=== PATIENT | female | born 1955 | race Caucasian/White ===

== ENCOUNTER 2023-08-06 13:47 | Inpatient (IN) | payer MEDICARE, OTHER, SELFPAY ==
[2023-08-06] VITALS (12 sets, daily range): BP systolic 116–172; BP diastolic 61–84; BMI 31.3; BMI 31.5
--- NOTE | 2023-08-06 12:08 | EDRN ---
this RN placed a RAC #20 PIV, the pt stated to this RN, 'I really can't look at that, i am such a baby with needles and they freak me out and i truly will pass out, i just can't look at it, it bothers me', the pt was started to hyperventilate, this
RN notified the provider Jesusita SLATER and this RN wrapped an shasha bandage around the PIV site loosly so that the pt will not see the PIV, the pt stated to this RN, 'Oh my goodness thank you so much i really appreciate it, i just can't see it
or i will freak out', will frequently check PIV site
--- NOTE | 2023-08-06 12:13 | EDRN ---
this RN called the kitchen and ordered what the pt requested for lunch, the pt is resting on the side of the stretcher, no c/o chest pain, no c/o SOB, no s/s of distress, the pt denies needing at this time, will continue to monitor the pt closely
[2023-08-06 12:19] LABS: % Basophils 0.6 % (0-2); % Eosinophils 0.3 % (0-6); % Immature Granulocytes 0.2 % (0-0.5); % Lymphocytes 17.3 % (20.5-51.1); % Monocytes 8.8 % (1.7-9.3); % Neutrophils 72.8 % (42.2-75.2); Absolute Lymphocytes 1.1 10^3/uL (1.2-3.4); Absolute Monocytes 0.6 10^3/uL (0.1-0.6); Absolute Neutrophils 4.6 10^3/uL (1.4-6.5); Hematocrit 39.1 % (37.0-47.0); Hemoglobin 13.5 g/dL (12.0-16.0); Mean Corp Hgb Conc. 34.5 g/dL (33.0-37.0); Mean Corpuscular Hgb 33.3 pg (27.0-31.0); Mean Corpuscular Volume 96.5 fL (81.0-99.0); Nucleated Red Blood Cells % 0 %; Platelet Count 298 10^3/uL (130-400); Red Blood Cell Count 4.05 10^6/uL (4.20-5.40); White Blood Cell Count 6.3 10^3/uL (4.8-10.8)
[2023-08-06 12:28] LABS: ALT (SGPT) 21 U/L (0-35); AST (SGOT) 25 U/L (14-36); Alkaline Phosphatase 81 U/L (38-126); Blood Urea Nitrogen 20 mg/dl (7-17); Carbon Dioxide 29 mmol/L (22-30); Chloride 105 mmol/L (98-107); Estimated Creatinine Clearance 78 ml/min; Glucose 106 mg/dl (70-99); Potassium 4.2 mmol/L (3.5-5.1); Sodium 137 mmol/L (135-145); Total Bilirubin 0.3 mg/dl (0.2-1.3); eGFR > 60.00
[2023-08-06 12:39] LABS: D-Dimer 0.42 ug/mlFEU (0.00-0.50)
[2023-08-06 12:41] LABS: NT-proBNP 87.6 pg/ml; Troponin I 0.084 ng/ml
--- NOTE | 2023-08-06 12:42 | ED.GENMED ---
History of Present Illness
<Jesusita Rae PA-C - Last Filed: 08/06/23 18:31>
General
Chief Complaint: Chest Pain
Source: patient
Exam Limitations: none
Time Seen by Provider: 08/06/23 11:40
Nursing documentation reviewed up to this point in time: agreed with
Travel History
Have you had any contact with someone who has COVID-19?: No
Do you have any symptoms of coronavirus? Fever > 100 degrees, chills, cough, shortness of breath, sore throat, loss of taste or smell, muscle aches, or headache?: No
History of Present Illness
History of Present Illness:
68 y/o F with h/o HTN, HLD
sys that she was woken from sleep at 5 am today with onset of sob and some chest pressure
it lasted about 5 min before resolving, was 3/10
she then got up later on after eing able to sleep
she walked downstairs and sat down and aroun d9 am got another wave of pressure, this time in back, chest and left arm
lasted about 5 minutes as well and resovled
was not associated with SOB
no fever, chills, vomiting, ewakness, syncope,
Phy Exam
<Jesusita Rae PA-C - Last Filed: 08/06/23 18:31>
Physical Exam
Physical Exam:
GENERAL: Alert , in no apparent distress
EYE: pupils equal and reactive
NECK: Supple
ENT: o/p clr, mmm.
CARDIAC: Regular rate and rhythm .
LUNGS: Clear breath sounds bilaterally, no acute respiratory distress, no wheezes/rales/rhonchi
ABDOMEN: Soft, without focal tenderness, no r/g, no cvat, normal bowel sounds
NEUROLOGICAL: Alert and oriented, no focal neuro deficits
SKIN: Warm and dry, skin intact.
MUSCULOSKELETAL: No edema, well perfused. neg mack's sign
PSYCH: Normal and appropriate interaction.
Scores
<Jesusita Rae PA-C - Last Filed: 08/06/23 18:31>
Heart Score for Chest Pain Patients
STEMI patient?: No
History: Moderately Suspicious
ECG: Nonspecific Repolarization
Age: >/= 65 years
Risk Factors: >/= 3 Risk Factors or History of CAD
Troponin: >1 - <3 x Normal Limit
Heart Score for Chest Pain Patients: 7
Heart Score Risk: 72.7 % MACE over next 6 weeks
Course
<Jesusita Rae PA-C - Last Filed: 08/06/23 18:31>
Orders/Labs/Results
Orders:
Orders
08/06/23 11:10
ECG [Electrocardiogram (*1)] Urgent
Reason for Study: Chest Pain
EKG- Treatment ONCE
08/06/23 12:00
CXR2 [CR Chest - 2 Views ] Urgent
Comment:
Reason For Exam: shortness of breath
08/06/23 12:02
Complete Blood Count/With Diff Urgent
Comprehensive Metabolic Panel Urgent
NT-proBNP Urgent
Troponin I Urgent
08/06/23 12:19
D-Dimer Urgent
PTT Urgent
Comment: ADD ON
08/06/23 12:49
Aspirin Chewable [Low Strength Aspirin] 324 mg PO NOW STA
08/06/23 12:57
Heparin 4,000 units IV NOW STA
Pharmacy Request to Place See Dose Instructions PO NOW STA
Discontinue all Active Warfarin orders?: Yes
Nursing to Place Non Medication Order As Directed
Physician Order: PTT 6 hours after initial start of Heparin infusion
Above order entered?: Yes
08/06/23 13:00
Add On- LAB Urgent
Tests Added?: ptt
Heparin 27171 Units/250 ml 25,000 units in 250 ml IV PER PROTOCOL
Weight to be used for heparin protocol in kilograms (kg):: 82.554
Protocol:: Cardiac Tx/Acute Coronary
PTT Goal Range to be used:: PTT 73 to 111 seconds
Order type:: Initial
INITIAL Infusion Dose (UNITS/KG/hr) & then follow protocol:: 12 units/kg/hr
Infusion Dose in UNITS/hr & then follow protocol (UNITS/hr):: 1,000
INFUSION RATE in mL/hr & then follow protocol (mL/hr):: 10
PTT less than or equal to 64 seconds:: Increase rate by 200 units/hr (+ 2 mL/hr)
PTT 64.1 to 72.9 seconds:: Increase rate by 100 units/hr (+ 1 mL/hr)
PTT 73 to 111 seconds:: Target Range. No change in rate.
PTT 111.1 to 130.9 seconds:: Decrease rate by 100 units/hr (- 1 mL/hr)
PTT 131 to 199.9 seconds:: HOLD for 1 hr. Then decrease rate by 200 units/hr (- 2 mL/hr)
PTT greater than or equal to 200 seconds:: HOLD for 2 hrs & Notify Provider. Then decrease by 200 units/hr (-
2 mL/hr)
Lab follow-up:: Each change, PTT q6h until 2 consecutive are therapeutic. Then PTT
daily.
Pharmacy Request to Place See Dose Instructions IV DIRECTED
08/06/23 13:28
Admit/Transfer Patient As Directed
Co-Sign Provider:
Level of Care: Inpatient admission
Assign to:: Telemetry
Physician / Group: Hospitalist
Diagnosis: NSTEMI
Reason for Telemetry: Chest Pain syndromes
Date to Stop Telemetry: 08/08/23
Time to Stop Telemetry: 11:00
Reason for Hospitalization: Chest pain, NSTEMI
Expected length of stay greater than two midnights?: Yes
ELOS- Estimated Length of Stay in days: 2
I certify the patient meets the requirements for IP care: Yes
08/06/23 13:30
Code Status As Directed
Resuscitation Status: Full Code
08/06/23 Dinner
Cholesterol Lowering
At Your Request: Full Participation
Cholesterol Lowering: Sodium, 2 Gram
08/06/23 16:20
Electrocardiogram (*1) Q6H
Reason for Study: Chest Pain
Comment: at admission and Q3H for total of 3, to be done with each troponin
Acetaminophen [Tylenol] 650 mg PO Q4HPRN PRN
Mag Hydrox/Al Hydrox/Simeth [Maalox] 30 ml PO Q4HPRN PRN
Nitroglycerin Sublingual [Nitrostat (Sublingual)] 0.4 mg SL [id number] PRN
Ondansetron Injectable [Zofran] 4 mg IV Q6HPRN PRN
08/06/23 16:20
Echo 2D MMode Color/Doppler Routine
Reason for Study: chest pain
CARDIOLOGY CONSULT Routine
Consulting Provider: Johnny Dallas
Was physician already notified: Yes
Reason for consult: NSTEMI
VTE Contraindication Routine
VTE Mechanical Device Contraindication: Medical Contraindication
Pharmocologic Contraindication: Medical Contraindication
Heparin Protocol- PTT Orders As Directed
PTT per Heparin protocol: -Obtain CBC and baseline PTT - if not already collected.
-Obtain PTT 6 hours from start of infusion. Then, every 6 hours until 2 consecutive
PTT's are therapeutic. Then, PTT Daily.
-With each rate change, obtain PTT every 6 hours until 2 consecutive PTT's are
therapeutic. Then, PTT Daily.
Activity As Directed
Activity Level: With Assistance
INT (Intravenous Needle Therapy) As Directed
Comment: maintain peripheral IV access
Intake/ Output As Directed
Frequency: Per unit guidelines
Notify MD As Directed
Notify physician if: PTT is greater than or equal to 200.
Vital Signs As Directed
Frequency: q4h
Weight As Directed
Frequency: Daily
Pulse Ox/spot Check [RESP] Routine
Quantity: 1
Special Instructions: on admission and then every shift if on oxygen
08/06/23 16:58
Troponin I Q3H
Comment: at admit & Q3H for 3 total including ED draws, obtain ECG with each level
08/06/23 18:00
Atorvastatin [Lipitor] 80 mg PO QPM
08/06/23 19:30
PTT Urgent
08/06/23 22:00
estradiol [Yuvafem] 10 mcg VAGINAL MOWEFRSA@2200
08/06/23 22:20
Electrocardiogram (*1) Q6H
Reason for Study: Chest Pain
Comment: at admission and Q3H for total of 3, to be done with each troponin
08/07/23 04:20
Electrocardiogram (*1) Q6H
Reason for Study: Chest Pain
Comment: at admission and Q3H for total of 3, to be done with each troponin
08/07/23 06:00
Basic Metabolic Panel IN AM
Cardiovascular Evaluation IN AM
Complete Blood Count/No Diff IN AM
Glycohemoglobin (HgbA1c) IN AM
08/07/23 08:00
Aspirin Low Dose EC [Aspir Low (Enteric Coated)] 81 mg PO DAILY
Multivitamin [Theragran] 1 tablet PO DAILY
08/08/23 Breakfast
NPO
Allow oral meds: Yes
Allow clear liquids: Sips of Clears
Complete Blood Count/No Diff Q2D
Comment: notify provider: Platelet count < 130,000 or decrease by 50% from baseline
08/08/23 11:00
DC Protocol for Telemetry ONCE
08/10/23 06:00
Complete Blood Count/No Diff Q2D
Comment: notify provider: Platelet count < 130,000 or decrease by 50% from baseline
08/12/23 06:00
Complete Blood Count/No Diff Q2D
Comment: notify provider: Platelet count < 130,000 or decrease by 50% from baseline
08/14/23 06:00
Complete Blood Count/No Diff Q2D
Comment: notify provider: Platelet count < 130,000 or decrease by 50% from baseline
08/16/23 06:00
Complete Blood Count/No Diff Q2D
Comment: notify provider: Platelet count < 130,000 or decrease by 50% from baseline
08/18/23 06:00
Complete Blood Count/No Diff Q2D
Comment: notify provider: Platelet count < 130,000 or decrease by 50% from baseline
08/20/23 06:00
Complete Blood Count/No Diff Q2D
Comment: notify provider: Platelet count < 130,000 or decrease by 50% from baseline
08/22/23 06:00
Complete Blood Count/No Diff Q2D
Comment: notify provider: Platelet count < 130,000 or decrease by 50% from baseline
Abnormal Lab Results
08/06/23
12:02
RBC 4.05 L 10^6/uL
(4.20-5.40)
MCH 33.3 H pg
(27.0-31.0)
Absolute Lymphs (auto) 1.1 L 10^3/uL
(1.2-3.4)
Lymphocytes % 17.3 L %
(20.5-51.1)
BUN 20 H mg/dl
(7-17)
Glucose 106 H mg/dl
(70-99)
Troponin I 0.084 H* ng/ml
08/06/23 12:02
08/06/23 12:02
Vital Signs
Initial and Last Documented VS:
Initial Vital Signs
Temp Pulse Resp BP Pulse Ox
98.1 F 72 16 171/84 98
08/06/23 11:37 08/06/23 11:37 08/06/23 11:37 08/06/23 11:37 08/06/23 11:37
Last Documented Vital Signs
Temp Pulse Resp BP Pulse Ox
98.1 F 65 17 172/73 96
08/06/23 11:37 08/06/23 17:37 08/06/23 16:15 08/06/23 17:37 08/06/23 15:30
<Riaz Richard, DO - Last Filed: 08/06/23 12:54>
Orders/Labs/Results
Orders:
Orders
08/06/23 11:10
ECG [Electrocardiogram (*1)] Urgent
Reason for Study: Chest Pain
EKG- Treatment ONCE
08/06/23 12:00
CXR2 [CR Chest - 2 Views ] Urgent
Comment:
Reason For Exam: shortness of breath
08/06/23 12:02
Complete Blood Count/With Diff Urgent
Comprehensive Metabolic Panel Urgent
NT-proBNP Urgent
Troponin I Urgent
08/06/23 12:19
D-Dimer Urgent
PTT Urgent
Comment: ADD ON
08/06/23 12:49
Aspirin Chewable [Low Strength Aspirin] 324 mg PO NOW STA
08/06/23 12:57
Heparin 4,000 units IV NOW STA
Pharmacy Request to Place See Dose Instructions PO NOW STA
Discontinue all Active Warfarin orders?: Yes
Nursing to Place Non Medication Order As Directed
Physician Order: PTT 6 hours after initial start of Heparin infusion
Above order entered?: Yes
08/06/23 13:00
Add On- LAB Urgent
Tests Added?: ptt
Heparin 78430 Units/250 ml 25,000 units in 250 ml IV PER PROTOCOL
Weight to be used for heparin protocol in kilograms (kg):: 82.554
Protocol:: Cardiac Tx/Acute Coronary
PTT Goal Range to be used:: PTT 73 to 111 seconds
Order type:: Initial
INITIAL Infusion Dose (UNITS/KG/hr) & then follow protocol:: 12 units/kg/hr
Infusion Dose in UNITS/hr & then follow protocol (UNITS/hr):: 1,000
INFUSION RATE in mL/hr & then follow protocol (mL/hr):: 10
PTT less than or equal to 64 seconds:: Increase rate by 200 units/hr (+ 2 mL/hr)
PTT 64.1 to 72.9 seconds:: Increase rate by 100 units/hr (+ 1 mL/hr)
PTT 73 to 111 seconds:: Target Range. No change in rate.
PTT 111.1 to 130.9 seconds:: Decrease rate by 100 units/hr (- 1 mL/hr)
PTT 131 to 199.9 seconds:: HOLD for 1 hr. Then decrease rate by 200 units/hr (- 2 mL/hr)
PTT greater than or equal to 200 seconds:: HOLD for 2 hrs & Notify Provider. Then decrease by 200 units/hr (-
2 mL/hr)
Lab follow-up:: Each change, PTT q6h until 2 consecutive are therapeutic. Then PTT
daily.
Pharmacy Request to Place See Dose Instructions IV DIRECTED
08/06/23 13:28
Admit/Transfer Patient As Directed
Co-Sign Provider:
Level of Care: Inpatient admission
Assign to:: Telemetry
Physician / Group: Hospitalist
Diagnosis: NSTEMI
Reason for Telemetry: Chest Pain syndromes
Date to Stop Telemetry: 08/08/23
Time to Stop Telemetry: 11:00
Reason for Hospitalization: Chest pain, NSTEMI
Expected length of stay greater than two midnights?: Yes
ELOS- Estimated Length of Stay in days: 2
I certify the patient meets the requirements for IP care: Yes
08/06/23 13:30
Code Status As Directed
Resuscitation Status: Full Code
08/06/23 Dinner
Cholesterol Lowering
At Your Request: Full Participation
Cholesterol Lowering: Sodium, 2 Gram
08/06/23 16:20
Electrocardiogram (*1) Q6H
Reason for Study: Chest Pain
Comment: at admission and Q3H for total of 3, to be done with each troponin
Acetaminophen [Tylenol] 650 mg PO Q4HPRN PRN
Mag Hydrox/Al Hydrox/Simeth [Maalox] 30 ml PO Q4HPRN PRN
Nitroglycerin Sublingual [Nitrostat (Sublingual)] 0.4 mg SL [id number] PRN
Ondansetron Injectable [Zofran] 4 mg IV Q6HPRN PRN
08/06/23 16:20
Echo 2D MMode Color/Doppler Routine
Reason for Study: chest pain
CARDIOLOGY CONSULT Routine
Consulting Provider: Johnny Dallas
Was physician already notified: Yes
Reason for consult: NSTEMI
VTE Contraindication Routine
VTE Mechanical Device Contraindication: Medical Contraindication
Pharmocologic Contraindication: Medical Contraindication
Heparin Protocol- PTT Orders As Directed
PTT per Heparin protocol: -Obtain CBC and baseline PTT - if not already collected.
-Obtain PTT 6 hours from start of infusion. Then, every 6 hours until 2 consecutive
PTT's are therapeutic. Then, PTT Daily.
-With each rate change, obtain PTT every 6 hours until 2 consecutive PTT's are
therapeutic. Then, PTT Daily.
Activity As Directed
Activity Level: With Assistance
INT (Intravenous Needle Therapy) As Directed
Comment: maintain peripheral IV access
Intake/ Output As Directed
Frequency: Per unit guidelines
Notify MD As Directed
Notify physician if: PTT is greater than or equal to 200.
Vital Signs As Directed
Frequency: q4h
Weight As Directed
Frequency: Daily
Pulse Ox/spot Check [RESP] Routine
Quantity: 1
Special Instructions: on admission and then every shift if on oxygen
08/06/23 16:58
Troponin I Q3H
Comment: at admit & Q3H for 3 total including ED draws, obtain ECG with each level
08/06/23 18:00
Atorvastatin [Lipitor] 80 mg PO QPM
08/06/23 19:30
PTT Urgent
08/06/23 22:00
estradiol [Yuvafem] 10 mcg VAGINAL MOWEFRSA@2200
08/06/23 22:20
Electrocardiogram (*1) Q6H
Reason for Study: Chest Pain
Comment: at admission and Q3H for total of 3, to be done with each troponin
08/07/23 04:20
Electrocardiogram (*1) Q6H
Reason for Study: Chest Pain
Comment: at admission and Q3H for total of 3, to be done with each troponin
08/07/23 06:00
Basic Metabolic Panel IN AM
Cardiovascular Evaluation IN AM
Complete Blood Count/No Diff IN AM
Glycohemoglobin (HgbA1c) IN AM
08/07/23 08:00
Aspirin Low Dose EC [Aspir Low (Enteric Coated)] 81 mg PO DAILY
Multivitamin [Theragran] 1 tablet PO DAILY
08/08/23 Breakfast
NPO
Allow oral meds: Yes
Allow clear liquids: Sips of Clears
Complete Blood Count/No Diff Q2D
Comment: notify provider: Platelet count < 130,000 or decrease by 50% from baseline
08/08/23 11:00
DC Protocol for Telemetry ONCE
08/10/23 06:00
Complete Blood Count/No Diff Q2D
Comment: notify provider: Platelet count < 130,000 or decrease by 50% from baseline
08/12/23 06:00
Complete Blood Count/No Diff Q2D
Comment: notify provider: Platelet count < 130,000 or decrease by 50% from baseline
08/14/23 06:00
Complete Blood Count/No Diff Q2D
Comment: notify provider: Platelet count < 130,000 or decrease by 50% from baseline
08/16/23 06:00
Complete Blood Count/No Diff Q2D
Comment: notify provider: Platelet count < 130,000 or decrease by 50% from baseline
08/18/23 06:00
Complete Blood Count/No Diff Q2D
Comment: notify provider: Platelet count < 130,000 or decrease by 50% from baseline
08/20/23 06:00
Complete Blood Count/No Diff Q2D
Comment: notify provider: Platelet count < 130,000 or decrease by 50% from baseline
08/22/23 06:00
Complete Blood Count/No Diff Q2D
Comment: notify provider: Platelet count < 130,000 or decrease by 50% from baseline
Abnormal Lab Results
08/06/23
12:02
RBC 4.05 L 10^6/uL
(4.20-5.40)
MCH 33.3 H pg
(27.0-31.0)
Absolute Lymphs (auto) 1.1 L 10^3/uL
(1.2-3.4)
Lymphocytes % 17.3 L %
(20.5-51.1)
BUN 20 H mg/dl
(7-17)
Glucose 106 H mg/dl
(70-99)
Troponin I 0.084 H* ng/ml
08/06/23 12:02
08/06/23 12:02
Vital Signs
Initial and Last Documented VS:
Initial Vital Signs
Temp Pulse Resp BP Pulse Ox
98.1 F 72 16 171/84 98
08/06/23 11:37 08/06/23 11:37 08/06/23 11:37 08/06/23 11:37 08/06/23 11:37
Last Documented Vital Signs
Temp Pulse Resp BP Pulse Ox
98.1 F 65 17 172/73 96
08/06/23 11:37 08/06/23 17:37 08/06/23 16:15 08/06/23 17:37 08/06/23 15:30
<Jesusita Rae PA-C - Last Filed: 08/06/23 18:31>
MDM/Problems Addressed
Differential Diagnosis Includes:
ACS, pe, less likely dissection
MDM/Problems Addressed:
68 y/o F with h/o HTN, HLD with cp that woke up from sleep at 5 am and resolved, and again at 9 am with radiation to [place] and back; pain free; well apperaing; LBBB on ekg which is apparently her basleine; ; trop 0.08, d dimer neg, cxr narrow
mediastinum; i spoke with dr. dallas, cardiology, recommended heparin;
<Jesusita Rae PA-C - Last Filed: 08/06/23 18:31>
*Critical Care Note
Total Time (30-74mins, 75-104mins- exclusive of procedures): Not Applicable
ED Attending Note
<Jesusita Rae PA-C - Last Filed: 08/06/23 18:31>
-
Portions of this chart may have been created with voice recognition software.� Occasional wrong word or��sound alike� substitutions may have occurred due to the inherent limitations of voice recognition software.
<Riaz Richard DO - Last Filed: 08/06/23 12:54>
ED Attending Note
Patient seen and examined by attending physician: Yes
I performed the substantive portion of visit, reviewed & personally made and approve the management plan that is documented in note by myself or GREGORIO.: Yes
Discharge Plan
Departure
Patient Disposition: Admit
Date of Disposition: 08/06/23
Time of Disposition: 12:56
Admit to: Telemetry
Presentation/result/management discussed w/ accepting MD/DO: Hospitalist
Condition: Fair
Covid-19: Not Applicable
Discharge Problem:
Non-ST elevation [place] (NSTEMI)
Interventions
Interventions:
*Risk Screen - Suicide Last Done: 08/06/23 12:08
*General Assessment Last Done: 08/06/23 12:08
*Neglect/Abuse Screening Last Done: 08/06/23 12:08
ED- Fall Risk Assessment Last Done: 08/06/23 12:08
*ED COVID-19 Vaccine History Last Done: 08/06/23 11:37
*Nursing Disposition Last Done: 08/06/23 16:44
ED- Cardiac Assessment Last Done: 08/06/23 12:08
Discharge Date and Time
Discharge Date/Time: 08/06/23 16:45
--- NOTE | 2023-08-06 13:04 | EDRN ---
Jesusita SLATER and Dr. Nation currently at the pts bedside speaking with the pt and the pts
[2023-08-06] MEDS: LOW STRENGTH ASPIRIN 324 MG PO (13:18)
[2023-08-06] MEDS: HEPARIN 4000 UNITS IV (13:18)
--- NOTE | 2023-08-06 13:18 | HPS.HSE ---
Family Physician
-
Family Physician: LAKIA Daniels
Chief Complaint
-
Chest pain
History of Present Illness
This is 68-year-old female with past medical history of known left bundle branch block, hypertension, postmenopausal, obesity who presents to the emergency department with recurrent episodes of chest pain x 2 that started at 5 AM today.
Patient reports being awoken from sleep at 5 AM with chest pain and shortness of breath. The chest pain lasted for about 5 to 10 minutes. She reports a pressure-like sensation in the substernal region that radiates to the back as well as to the
mid bilateral shoulders. Present shortness of breath there was no associated nausea vomiting or diaphoresis. After resolution of the patient the chest pain occurred again at around 9 AM with similar. Symptoms lasting again for about 5 minutes.
She took 1 dose of baby aspirin and came to the emergency department.
Patient reported that she did have an episode of dyspnea on exertion recently walking up 3 lung flight of stairs during trip. Otherwise she denied recurrent anginal symptoms. She denies any recent stress test. She denies lower extremity swelling.
She denied palpitations lightheadedness or dizziness. She denies any melena or hematochezia. She has no recent travels.
She did note that she had a 'cold' about 1 month ago. She denies any pleuritic type chest pain since then.
On arrival in the ED she was afebrile and hemodynamic stable with a blood pressure of 140/68 and pulse of 74 oxygen saturation of 96% on room air. ECG showed a report rate of 76 with a left bundle branch block and no acute ST or T wave changes.
Initial troponin was 0.08. CBC was completely normal. Chemistries were also normal. D-dimer was negative. Chest x-ray was clear.
Medical History
Past Medical History
Past Medical History: Reports HTN
Past Surgical History: Reports None
Social History
Tobacco: Non-smoker
Alcohol: None
Drug: None
Personal:
Living: With Family
Employment: Retired
Family History
Family History: Other (CVA)
Allergies / Home Medications
Allergies reflects when Allergies were last updated in [facility]..
Home Medications with original date entered in [facility].
Allergy/Medication List:
Allergies
Allergy/AdvReac Type Severity Reaction Status Date / Time
No Known Allergies Allergy Verified 08/06/23 11:38
Home Medications
aspirin 81 mg tablet,delayed release 81 mg PO ONCE 08/06/23
azelastine 137 mcg (0.1 %) nasal spray aerosol 2 spray intranasal HS 08/06/23
estradiol 10 mcg vaginal tablet (Yuvafem) 10 mcg vaginal MOWEFRSA@2200 08/06/23
glucosamine sulf dipot chlr,msm,chond 550 mg-C 30 mg-jossie 1 mg capsule (Glucosamine Chondroitin) 1 cap PO DAILY 08/06/23
ibuprofen 200 mg tablet 200 mg PO DAILY 08/06/23
ibuprofen 200 mg tablet 400 mg PO HS 08/06/23
lisinopril 10 mg tablet 10 mg PO DAILY 08/06/23
therapeutic multivitamin 1 tab PO DAILY 08/06/23
turmeric 400 mg capsule 400 mg PO DAILY 08/06/23
Review of Systems
-
History Source: Patient
Constitutional: Reports No Symptoms
EENT: Reports No Symptoms
Respiratory: Reports No Symptoms
Cardiac: Reports Chest Pain
Abdomen/GI: Reports No Symptoms
: Reports No Symptoms
Musculoskeletal: Reports No Symptoms
Skin: Reports No Symptoms
Neurological: Reports No Symptoms
Endocrine: Reports No Symptoms
Hematologic/Lymphatic: Reports No Symptoms
Psych: Reports No Symptoms
Physical Exam
Vital Signs
Vital Signs
Temp Pulse Resp BP Pulse Ox
98.1 F 74 18 139/68 96
08/06/23 11:37 08/06/23 12:15 08/06/23 12:15 08/06/23 12:00 08/06/23 12:15
Physical Exam
General: Well Developed, Well Nourished, No Apparent Distress, Comfortable, Conversant and Obese
HEENT: NormoCephalic, Anicteric, Moist mucous membranes, Atraumatic and PERRLA
Respiratory: Clear and Non Labored Respirations
Cardiac: S1/S2 and Regular Rhythm
Breast: Deferred by me
GI: Soft, Non Tender, Non Distended and Normal Bowel Sounds
Rectal: Deferred by Provider
Genito-urinary: Deferred by me
Musculoskeletal: No Clubbing, No Cyanosis and No Edema
Skin: Warm and Dry
Neuro: AO x 3
Hematologic/Lymphatic: No Lymphadenopathy
Psych: Calm
Laboratory Results
-
08/06/23 12:02
08/06/23 12:02
Laboratory Results
APTT Cancelled 08/06/23 12:57
Total Bilirubin 0.3 mg/dl (0.2-1.3) 08/06/23 12:02
AST 25 U/L (14-36) 08/06/23 12:02
ALT 21 U/L (0-35) 08/06/23 12:02
Alkaline Phosphatase 81 U/L (38-126) 08/06/23 12:02
Troponin I 0.084 ng/ml H* 08/06/23 12:02
Data Reviewed
-
Diagnostic Radiology: Image Personally Visualized and interpreted and Report Reviewed by me
Medical Tests (Nuc Med, Echo, EKG etc): Image Personally Visualized and interpreted
Lab Data: Labs Reviewed by me
Old Records: Reviewed
Impression/Plan
-
IMPRESSION:
PLAN:
Chest pain - Typical Chest pain w/ Trop elevation to 0.08. Non-reproucible with palpation. Normal D-dimer. No acute ECG changes. LBBB reported previously. NSTEMI by definition at this time. Possibly pericarditis. Currently chest pain free
and without acute respiratory symptoms. No known prior CAD.
- admit to telemetry
- s/p aspirin 324, continue 81 daily for now
- cards recommended heparin gtt.
- high dose statin for now
- cardiac enzymes
- echo now. If normal and trop is flat, plan for stress in am, otherwise may need early intervention
- lipid panel, a1c, tsh in am.
- sl-ntg prn, ecg with trop and any episode of chest pain or nausea
- continue lisinopril daily
- cardiac diet now, npo after midnight.
On heparin, so no need for DVT PPX
Full Code
[2023-08-06 13:21] LABS: APTT 28.7 Sec (23.4-35.0)
[2023-08-06] MEDS: HEPARIN 25000 UNITS/250 ML IV (13:25)
--- NOTE | 2023-08-06 14:30 | EDRN ---
the pt pressed the call francis and this RN entered the pts room, the pt stated that she needed to use the bathroom, the pt was able to ambulate to the bathroom and back to the stretcher with no issues, no c/o chest pain, no c/o SOB, c/o slight
dizziness and light headedness, provider notified by this RN, the pt is currently resting in stretcher in the lowest position, side rails up x2, call francis within reach, HOB elevated, Heparin gtt currently still infusing @ 1000units/hour, will
continue to monitor the pt closely
--- NOTE | 2023-08-06 14:37 | EDRN ---
this RN called the receiving unit and notified them that paper report was going to be tubed up
--- NOTE | 2023-08-06 16:57 | CON.CAR ---
Consultation
Consultation Request
Date/Time Consultation Requested: 08/06/23
Date/Time Consultation Performed: 08/06/23
Requesting Provider: Butch
Performing Provider: Erendira
Reason for Consultation: chest pain
Medical History
-
Chief Complaint: chest pain
History of Present Illness:
68-year-old woman past medical history of a pulmonary block and hypertension who presents for evaluation following episode of chest pain this morning
Patient reports that she had substernal chest tightness and dyspnea which woke her from sleep around 5 AM there was some radiation to her back as well. This seemed to self resolve and she was able to back to sleep. Later that morning around 9 AM
she had a second such episode and decided to present to the emergency department for evaluation. It seems that again pain was self-limited.
He was also Emergency Department admission EKG showed left bundle branch block which was known. Initial troponin was elevated at 0.84. She was treated with aspirin and heparin drip and admitted to IVU for further management.
At time my evaluation she was currently asymptomatic, no further recurrence of chest discomfort. No shortness of breath. No lower extremity edema.
Discussed with patient and her significant other who was at bedside
PMHx:
LBBB
HTN
Past Medical History
Past Medical History: Other (as above)
Past Surgical History: Other (as above)
Social History
Tobacco: Non-Smoker
Family History
Family History: Reviewed & Not Pertinent
Allergies / Home Medications
Allergy/AdvReac Type Severity Reaction Status Date / Time
No Known Allergies Allergy Verified 08/06/23 11:38
Medication Instructions Recorded Confirmed Type
aspirin 81 mg tablet,delayed 81 mg PO ONCE 08/06/23 08/06/23 History
release
azelastine 137 mcg (0.1 %) nasal 2 spray intranasal HS 08/06/23 08/06/23 History
spray aerosol
estradiol 10 mcg vaginal tablet 10 mcg vaginal MOWEFRSA@2200 08/06/23 08/06/23 History
(Yuvafem)
glucosamine sulf dipot 1 cap PO DAILY 08/06/23 08/06/23 History
chlr,msm,chond 550 mg-C 30 mg-jossie
1 mg capsule (Glucosamine
Chondroitin)
ibuprofen 200 mg tablet 200 mg PO DAILY 08/06/23 08/06/23 History
ibuprofen 200 mg tablet 400 mg PO HS 08/06/23 08/06/23 History
lisinopril 10 mg tablet 10 mg PO DAILY 08/06/23 08/06/23 History
therapeutic multivitamin 1 tab PO DAILY 08/06/23 08/06/23 History
turmeric 400 mg capsule 400 mg PO DAILY 08/06/23 08/06/23 History
Review of Systems
-
History Source: Patient
All other systems: Negative unless noted
Physical Exam
Vital Signs
Temp Pulse Resp BP Pulse Ox
98.1 F 72 17 143/74 96
08/06/23 11:37 08/06/23 16:30 08/06/23 16:15 08/06/23 15:00 08/06/23 15:30
Lab Results
08/06/23 12:02
08/06/23 12:02
Troponin I 0.084 ng/ml H* 08/06/23 12:02
Uin-H-Aacclygsmrs Pept 87.6 pg/ml 08/06/23 12:02
Physical Exam
General: Well Developed
HEENT: Normocephalic
Respiratory: Clear and Non Labored Respirations
Cardiac: S1/S2 and Regular Rhythm
Breast: Deferred by me
GI: Soft
Musculoskeletal: No Edema
Skin: Warm and Dry
Neuro: AO x 3
Psych: Calm
Impression / Plan
-
Staker Surveying: Estuardo
Assessent:
NSTEMI
LBBB
HTN
Plan:
-Presents after 2 episodes of chest discomfort found to have mildly elevated troponin at 0.084 consistent with NSTEMI
-Trend troponin to peak
-Serial ECG
-Monitor on telemetry
-Check echo
-Medical management with aspirin 81 mg daily, intensity statin, low-dose beta-noam and heparin drip x 48 hours
-PRN Sublingual nitroglycerin for recurrent chest pain
-Tentative plan for left heart catheterization on 08/08/2023
-Eventual cardiac rehab
Data Reviewed
-
EKG: Tracing Personally Visualized and interpreted
Radiology: Image Personally Visualized and interpreted
Medical Tests (Nuc Med, Echo etc): Report Reviewed by me
Labs: Labs Reviewed by me
Old Records: Reviewed
--- NOTE | 2023-08-06 17:25 | PTCARENOTE ---
Received patient from ED into room 5433 with admission dx of chest pain. Patient oriented to the room and plan of care. IV heparin infusing at 1000units/hr. Candido wrap noted on the patient's RFA. She is very fearful of IV's and stated the nurse in the
ED wrapped her arm so that she wasn't able to see the needle which stresses her. Candido removed and long spandage applied which patient was content with. Patient denies any chest pain at this time. Nursing admission assessment completed. at the
bedside, call francis within reach. Patient ordered q3H troponins, order clarified with Dr. Tolliver and ok to do q6H with PTT's to avoid excessive phlebotomy sticks.
[2023-08-06 17:35] LABS: Troponin I 0.571 ng/ml
[2023-08-06] MEDS: LIPITOR 80 MG PO (17:37)
[2023-08-06] MEDS: TOPROL XL 25 MG PO (17:37)
[2023-08-06 20:26] LABS: APTT 36.2 Sec (23.4-35.0)
[2023-08-06 20:40] LABS: Troponin I 0.878 ng/ml
[2023-08-07 04:00] VITALS: BP 142/66
[2023-08-07 04:27] LABS: Hematocrit 39.1 % (37.0-47.0); Hemoglobin 13.3 g/dL (12.0-16.0); Mean Corpuscular Hgb 32.7 pg (27.0-31.0); Mean Corpuscular Volume 96.1 fL (81.0-99.0); Mean Platelet Volume 10.9 fL (7.4-10.4); Red Blood Cell Count 4.07 10^6/uL (4.20-5.40); Red Cell Dist. Width 11.9 % (11.5-14.5); White Blood Cell Count 6.7 10^3/uL (4.8-10.8)
[2023-08-07 04:28] LABS: Platelet Count 238 10^3/uL (130-400)
[2023-08-07 04:39] LABS: APTT 78.3 Sec (23.4-35.0)
[2023-08-07 04:52] LABS: Blood Urea Nitrogen 17 mg/dl (7-17); Calcium 9.2 mg/dl (8.4-10.2); Carbon Dioxide 28 mmol/L (22-30); Chloride 103 mmol/L (98-107); Estimated Creatinine Clearance 91 ml/min; Glucose 100 mg/dl (70-99); HDL Cholesterol 49 mg/dl; LDL Cholesterol, Calculated 108 mg/dl; Potassium 3.8 mmol/L (3.5-5.1); Sodium 139 mmol/L (135-145); Total Cholesterol 173 mg/dl (50-199); Triglyceride 81 mg/dl (10-149); Very Low Density Lipoprotein 16 mg/dl (0-30); eGFR > 60.00
[2023-08-07 05:03] LABS: Troponin I 0.693 ng/ml
--- NOTE | 2023-08-07 05:21 | PTCARENOTE ---
Pt ambulating the room as a self- no complaints of chest pressure- heparin gtt running as documented. SR on the monitor 60s- 70s
[2023-08-07 07:45] VITALS: BP 154/69
[2023-08-07 08:00] VITALS: BMI 31.4
[2023-08-07] MEDS: ZESTRIL 10 MG PO (08:37)
[2023-08-07] MEDS: ASPIR LOW (ENTERIC COATED) 81 MG PO (08:38)
[2023-08-07] MEDS: TOPROL XL 25 MG PO (08:38)
[2023-08-07] MEDS: THERAGRAN 1 TABLET PO (08:38)
[2023-08-07] MEDS: HEPARIN 25000 UNITS/250 ML IV (10:29)
[2023-08-07 10:38] LABS: Glycohemoglobin (HgbA1c) 5.6 % (4.0-5.6)
[2023-08-07 11:29] LABS: APTT 65.4 Sec (23.4-35.0)
[2023-08-07 11:39] VITALS: BP 125/53
--- NOTE | 2023-08-07 12:24 | W.PN.HOSP.TC ---
Today's Communication/Plan
-
NPO p MN cath tomorrow
Assessment / Plan
Assessment / Plan
Assessment:
NSTEMI
LBBB
- trops have peaked at .878
- continue IV heparin - requires intensive monitoring
- ASA/BB/Statin
- Echo
- Cardiac cath Tuesday
Essential HTN
- continue MARIA DEL ROSARIO
DVT ppx: IV Heparin
Code: Full
Anticipated Discharge: > 48 hours
Subjective/Interval History
-
Date of Service: August 07, 2023
denies any chest pain or SOB
tolerating IV heparin
Objective Data
-
Labs:
Laboratory Results
08/07/23 08/07/23 08/07/23
03:58 11:06 18:00
WBC 6.7
Hgb 13.3
Hct 39.1
Plt Count 238 D
APTT 78.3 H 65.4 H Pending
Sodium 139
Potassium 3.8
Chloride 103
Carbon Dioxide 28
BUN 17
Creatinine 0.6
Glucose 100 H
Calcium 9.2
Vital Signs:
Vital Signs
Temp Pulse Resp BP Pulse Ox
98.4 F 66 20 154/69 94
08/07/23 11:36 08/07/23 10:00 08/07/23 11:36 08/07/23 08:38 08/07/23 11:36
Physical Exam
-
General: No Apparent Distress
HEENT: Normocephalic and Atraumatic
Respiratory: Negative Wheezes or Rales
Cardiac: Regular Rhythm and S1/S2
GI: Soft and Nontender
Musculoskeletal: No Edema
Neuro: AO x 3
Hematologic / Lymphatic: No Lymphadenopathy
Psych: Calm
Data Reviewed
-
Total Time Spent with Patient (in minutes): 45
Labs: Labs Reviewed by me
--- NOTE | 2023-08-07 12:34 | W.PN.CARDCBS ---
Today's Communication / Plan
-
Aspirin/statin/beta-noam/heparin drip
N.p.o. at midnight for left heart cath on 08/07
Impression / Plan
-
Sales Support Manager: Estuardo
Assessent:
NSTEMI
LBBB
HTN
Plan:
-Presents after 2 episodes of chest discomfort found to have mildly elevated troponin at 0.084 which peaked at 0.88 consistent with NSTEMI
-Trend troponin to peak
-Medical management with aspirin 81 mg daily, intensity statin, low-dose beta-noam and heparin drip x 48 hours
-PRN Sublingual nitroglycerin for recurrent chest pain
-Check echo on Tuesday
-Tentative plan for left heart catheterization 08/08/2023
-Eventual cardiac rehab
Discussed with patient and family at bedside
Progress Note - Sales Support Manager
Subjective
Date of Service: August 07, 2023
No acute overnight events. Tells me she is chest pain-free. Currently resting comfortably in bed. No shortness of breath or lower extremity edema.
Objective
Labs:
08/07/23 03:58
08/07/23 03:58
Labs
Hgb 13.3 g/dL (12.0-16.0) 08/07/23 03:58
Hct 39.1 % (37.0-47.0) 08/07/23 03:58
Plt Count 238 10^3/uL (130-400) D 08/07/23 03:58
APTT 65.4 Sec (23.4-35.0) H 08/07/23 11:06
Sodium 139 mmol/L (135-145) 08/07/23 03:58
Potassium 3.8 mmol/L (3.5-5.1) 08/07/23 03:58
BUN 17 mg/dl (7-17) 08/07/23 03:58
Creatinine 0.6 mg/dL (0.6-1.0) 08/07/23 03:58
Glucose 100 mg/dl (70-99) H 08/07/23 03:58
Troponins
08/06/23 08/06/23 08/06/23
12:02 16:58 19:20
Troponin I 0.084 H* 0.571 H* D Cancelled
08/06/23 08/06/23 08/07/23
20:04 22:20 03:58
Troponin I 0.878 H* D Cancelled 0.693 H*
08/07/23
11:00
Troponin I Cancelled
Vital Signs and I&O:
Vital Signs
Temp Pulse Resp BP Pulse Ox
98.4 F 66 20 154/69 94
08/07/23 11:36 08/07/23 10:00 08/07/23 11:36 08/07/23 08:38 08/07/23 11:36
Vital Signs
Temp Pulse Resp BP Pulse Ox
98.4 F 66 20 154/69 94
08/07/23 11:36 08/07/23 10:00 08/07/23 11:36 08/07/23 08:38 08/07/23 11:36
Physical Exam
Physical Exam
Gen: NAD, AAOx3
HEENT: NC/AT, sclera anicteric
Neck: No JVD
CV: RRR, NL s1/s2, no M/R/G
Lungs: CTAB
Abd: S/ND
Ext: No LE edema
Skin: Warm, dry
Neuro: Non-focal
[2023-08-07 15:26] VITALS: BP 135/67
[2023-08-07] MEDS: LIPITOR 80 MG PO (17:43)
[2023-08-07 18:12] VITALS: BP 134/65
[2023-08-07 18:13] LABS: APTT 85.7 Sec (23.4-35.0)
--- NOTE | 2023-08-07 20:49 | PTCARENOTE ---
Pt received at start of shift, HR SR w/ BBB 60s-80s. Pt ambulating in room independently. Heparin infusing at 1300 units/hr. Educated pt on cath procedure and what to expect during/after. Pt states no further questions at this time. Pt denies any
CP, SOB, or lightheadedness/dizziness at this time. Informed to notify RN if any changes, call francis within reach.
[2023-08-07 22:53] VITALS: BP 108/64
[2023-08-08] VITALS (12 sets, daily range): BP systolic 101–134; BP diastolic 50–77; BMI 31.0
[2023-08-08 01:07] LABS: Hematocrit 39.5 % (37.0-47.0); Hemoglobin 13.5 g/dL (12.0-16.0); Mean Corp Hgb Conc. 34.2 g/dL (33.0-37.0); Mean Corpuscular Volume 96.6 fL (81.0-99.0); Mean Platelet Volume 9.9 fL (7.4-10.4); Platelet Count 311 10^3/uL (130-400); Red Blood Cell Count 4.09 10^6/uL (4.20-5.40); Red Cell Dist. Width 11.9 % (11.5-14.5)
[2023-08-08 01:19] LABS: APTT 118.9 Sec (23.4-35.0)
[2023-08-08 01:31] LABS: Blood Urea Nitrogen 22 mg/dl (7-17); Calcium 9.3 mg/dl (8.4-10.2); Carbon Dioxide 27 mmol/L (22-30); Chloride 103 mmol/L (98-107); Estimated Creatinine Clearance 91 ml/min; Glucose 105 mg/dl (70-99); Sodium 139 mmol/L (135-145); eGFR > 60.00
[2023-08-08 01:37] LABS: Potassium 3.9 mmol/L (3.5-5.1)
[2023-08-08] MEDS: HEPARIN 25000 UNITS/250 ML IV (06:32)
--- NOTE | 2023-08-08 07:59 | PTCARENOTE ---
Rec'd pt AAOx3 from prev nsg shift. Pt w/no c/o CP or SOB. VS stable w/BP 131/77 HR 60's. Pt w/IV Heparin drip infusing at ordered rate. PTT drawn & sent, awaiting results. Pt NPO since midnight for cardiac cath this AM. Pt w/call francis within reach
& no addtl needs at this time. Plan of care ongoing.
[2023-08-08 08:04] LABS: APTT 100.5 Sec (23.4-35.0)
[2023-08-08] MEDS: TOPROL XL 25 MG PO (08:30)
[2023-08-08] MEDS: ZESTRIL 10 MG PO (08:30)
[2023-08-08] MEDS: THERAGRAN 1 TABLET PO (08:30)
[2023-08-08] MEDS: ASPIR LOW (ENTERIC COATED) 81 MG PO (08:30)
--- NOTE | 2023-08-08 11:56 | CM ---
Chart reviewed. Patient is independent of ADLS, lives with her in a 2 S[address], 2 ABUNDIO, 0 DME. Patient currently with no discharge needs. Plan is for the patient to return home. CM to follow
--- NOTE | 2023-08-08 11:57 | W.PN.HOSP.TC ---
Today's Communication/Plan
-
Cardiac catht today
Assessment / Plan
Assessment / Plan
Assessment:
NSTEMI
LBBB
- Asymptomatic without chest pain now
- trops have peaked at .878
- continue IV heparin - requires intensive monitoring
- ASA/BB/Statin
- Echo
- Cardiac cath today
Essential HTN
- continue MARIA DEL ROSARIO
DVT ppx: IV Heparin
Code: Full
Anticipated Discharge: Today
Subjective/Interval History
-
Date of Service: August 08, 2023
No further chest pain
Objective Data
-
Labs:
Laboratory Results
08/08/23 08/08/23
00:59 07:36
WBC 8.0
Hgb 13.5
Hct 39.5
Plt Count 311 D
APTT 118.9 H 100.5 H
Sodium 139
Potassium 3.9
Chloride 103
Carbon Dioxide 27
BUN 22 H
Creatinine 0.6
Glucose 105 H
Calcium 9.3
Vital Signs:
Vital Signs
Temp Pulse Resp BP Pulse Ox
98.1 F 65 18 131/77 95
08/08/23 07:13 08/08/23 07:13 08/08/23 07:13 08/08/23 07:13 08/08/23 07:13
I&O
08/07/23 08/08/23 08/09/23
06:59 06:59 06:59
Intake Total 60 / 60
Balance 60 / 60
Review of Systems
-
Constitutional: Denies Fever
EENT: Denies Sore Throat
Respiratory: Denies Cough or Trouble Breathing
Abdomen/GI: Denies Nausea or Vomiting
Neuro: Denies Dizzy
Physical Exam
-
General: No Apparent Distress
HEENT: Moist Mucous Membranes
Respiratory: Clear to Auscultation
Cardiac: Regular Rhythm and S1/S2
Neuro: AO x 3
Data Reviewed
-
Labs: Labs Reviewed by me
--- NOTE | 2023-08-08 12:19 | PTCARENOTE ---
Report given to Anna in the laborer heading. Pt transported in bed to optical laboratory mechanic. Heparin IV drip stopped just before transport. Pt's VS taken just before & remain stable, BP 134/70, HR 65. Pt's family waiting in rm. Plan of care ongoing.
--- NOTE | 2023-08-08 13:30 | PTCARENOTE ---
08/08/23 1330 Rec'd report from Reba in the [employer]. Rec'd pt back from lab tester AAOx3; Pt R radial band in place w/no signs or symptoms of bleeding or hematoma. Pt's SpO2 on R pointer finder 99% on RA. Pt w/NSS IVF infusing via IV pump as ordered.
Pt's VS stable w/HR in the 60's-70's & BP 112/63. Pt reporting some 'mild, 3/10 R shoulder pain'. Pt declining any medications for the pain. Pt repositioned for comfort w/addtl pillow under the RUE/shoulder. Pt reporting 'good relief' from just the
repositioning. Advised pt of RUE restrictions post cath. Pt's family at bedside & MD in to see pt. Pt w/call francis within reach & plan of care ongoing.
[2023-08-08] MEDS: FLUSH (NSS) 1 FLUSH IV (13:32)
[2023-08-08] MEDS: NSS 1000 IV (13:35)
--- NOTE | 2023-08-08 13:55 | ITS.CL.CATH ---
[facility] [employer] - Catheterization
Cardiac Catheterization
Procedure Report:
LEFT HEART CATHETERIZATION
Date of Procedure: August 08, 2023
Referring: Dr. Johnny Krishna
PROCEDURES:
1. Left heart catheterization with coronary and single-plane left ventriculography
INDICATION: This is a 68-year-old gentleman with a past medical history notable for hypertension and left bundle branch block who presented to [facility] on 08/06/2023 following the development of substernal chest tightness and shortness of
breath awakening her from sleep around 5 AM with some radiation to her back. It resolved spontaneously and she was able to go back to sleep. Later in the morning at approximately 9 AM she experienced a second episode and presented to the emergency
department for further evaluation. Her initial troponin measured 0.084 ng/ml and peaked at 0.878 ng/mL. She is now referred for coronary angiography.
ACCESS: Right radial artery, 6 Monegasque sheath
HEMODYNAMICS : (mmHg)
AO (s/d) : 104/63, 81
LV (s/d) : 102/10
LVEDP : 18
CORONARY FINDINGS
DOMINANCE: Right
LEFT MAIN: Short versus cloacal. No significant stenosis
LEFT ANTERIOR DESCENDING: The left main is very short and LAD subselectively cannulated. The LAD appears to have minor irregularities. There is sluggish flow into the distal LAD that I feel was more related to selective engagement of the
circumflex and underfilling of the LAD. No focal stenosis was appreciated. The LAD tapers to a small caliber vessel as it approaches the apex
RAMUS: No focal obstructive coronary disease and rather small caliber ramus
CIRCUMFLEX: The circumflex gives rise to a large first obtuse marginal branch that arises very proximally and runs in a distribution typical of a ramus intermedius. The circumflex terminates in a small posterolateral system.
RIGHT CORONARY ARTERY: The right coronary artery is a dominant vessel with a 30% mid stenosis and diffuse minor luminal irregularities. The PDA is a moderate-sized vessel supplying a large territory. The posterolateral branch is a moderate-sized
vessel. No significant obstructive stenosis is appreciated
VENTRICULOGRAPHY: Left ventriculography was performed in WHITAKER projection. The digital single-plane left ventricular ejection fraction is estimated at 55%
RADIATION SUMMARY: Fluoro Time (min): 4.6, Dose (mGy): 339.3, DAP (Gy.cm2) : 26.1
Closure Device: TR band
CONCLUSIONS
1. Nonobstructive coronary disease with preserved left ventricular systolic function
RECOMMENDATIONS
1. Medical therapy. Will treat with dual antiplatelet therapy for 6 to 12 months. High intensity statin therapy.
2. Elevated blood pressure: Consider treatment with Cardizem CD
3. Low threshold to perform CT angiogram given shortness of breath with onset of symptoms
Copy to: Dr. Johnny Krishna
[2023-08-08] MEDS: LIPITOR 80 MG PO (16:59)
[2023-08-08] MEDS: TYLENOL 650 MG PO (19:22)
--- NOTE | 2023-08-09 00:16 | PTCARENOTE ---
Pt received at start of shift, HR SR w/ BBB 60s-80s. NSS infusing at 80mL/hr. Pt questioning types of angina and how she could avoid a spasm in her coronary artery in the future. Approved pt education regarding angina printed and given to pt. Pt
denies any CP, SOB, or lightheadedness/dizziness at this time. Informed to notify RN if any changes, call francis within reach.
[2023-08-09 02:58] VITALS: BP 121/65
[2023-08-09 03:19] LABS: Hematocrit 37.2 % (37.0-47.0); Hemoglobin 13.2 g/dL (12.0-16.0); Mean Corp Hgb Conc. 35.5 g/dL (33.0-37.0); Mean Corpuscular Hgb 33.1 pg (27.0-31.0); Mean Corpuscular Volume 93.2 fL (81.0-99.0); Mean Platelet Volume 9.9 fL (7.4-10.4); Platelet Count 270 10^3/uL (130-400); Red Blood Cell Count 3.99 10^6/uL (4.20-5.40); Red Cell Dist. Width 11.9 % (11.5-14.5); White Blood Cell Count 8.5 10^3/uL (4.8-10.8)
[2023-08-09 03:38] LABS: Blood Urea Nitrogen 20 mg/dl (7-17); Carbon Dioxide 24 mmol/L (22-30); Chloride 106 mmol/L (98-107); Estimated Creatinine Clearance 90 ml/min; Glucose 100 mg/dl (70-99); Sodium 139 mmol/L (135-145); eGFR > 60.00
[2023-08-09 07:17] VITALS: BP 131/72
--- NOTE | 2023-08-09 08:00 | PTCARENOTE ---
Rec'd pt AAOx3 w/no c/o CP or SOB. Pt also reporting RUE pain post cardiac cath has resolved after the one dose of PO Tylenol given last HS. Pt's VS stable w/BP 131/72, HR 66. Pt is SR w/L BBB on telemetry monitoring. Pt anticipating D/C to home
today. Plan of care ongoing.
[2023-08-09] MEDS: TOPROL XL 25 MG PO (08:02)
[2023-08-09] MEDS: CARDIZEM CD 120 MG PO (08:02)
[2023-08-09] MEDS: ZESTRIL 10 MG PO (08:02)
[2023-08-09] MEDS: ASPIR LOW (ENTERIC COATED) 81 MG PO (08:02)
[2023-08-09] MEDS: PLAVIX 75 MG PO (08:02)
[2023-08-09] MEDS: THERAGRAN 1 TABLET PO (08:02)
--- NOTE | 2023-08-09 10:24 | W.PN.HOSP.TC ---
Today's Communication/Plan
-
DC
Assessment / Plan
Assessment / Plan
Assessment:
NSTEMI
LBBB
- Asymptomatic without chest pain
- trops have peaked at .878
-S/p cardiac cath 01/07-nonobstructive CAD. CT today shows mild calcific coronary disease.
-Echo with normal EF and mild TR
-Continue with DAPT per cardiology. High intensity statin diet. Continue beta-noam.
-CT chest shows no evidence of PE
3 mm pulmonary [id number] outpatient with repeat chest CT in 12 months.
Mild bilateral lower lobe bronchial wall thickening without symptoms. If symptomatic would then advise follow up with pulmonary.
Essential HTN
- continue MARIA DEL ROSARIO; CCB added to optimize BP
DVT ppx: IV Heparin
Code: Full
DC home after cardiology rounds
More than 30 minutes spent in discharge including
Final examination of the patient
Summarizing hospital stay
Instructions for continuing care to all relevant caregivers
Preparation of discharge records, prescriptions, and referral forms
Total time spent (in minutes): 32
Anticipated Discharge: Today
Subjective/Interval History
-
Date of Service: August 09, 2023
No further chest pain or shortness of breath.
Objective Data
-
Labs:
Laboratory Results
08/09/23
03:11
WBC 8.5
Hgb 13.2
Hct 37.2
Plt Count 270
Sodium 139
Potassium 4.0
Chloride 106
Carbon Dioxide 24
BUN 20 H
Creatinine 0.6
Glucose 100 H
Calcium 9.0
Vital Signs:
Vital Signs
Temp Pulse Resp BP Pulse Ox
98.1 F 67 18 131/72 95
08/09/23 07:15 08/09/23 07:17 08/09/23 07:15 08/09/23 07:17 08/09/23 07:15
I&O
08/08/23 08/09/23 08/10/23
06:59 06:59 06:59
Intake Total 540 / 540
Balance 540 / 540
Review of Systems
-
Constitutional: Denies Fever
EENT: Denies Sore Throat
Respiratory: Reports Cough (some but none currently. ); Denies Trouble Breathing
Cardiac: Denies Chest Pain
Abdomen/GI: Denies Abdominal Pain, Nausea or Vomiting
Neuro: Denies Dizzy
Physical Exam
-
General: No Apparent Distress
HEENT: Moist Mucous Membranes
Respiratory: Clear to Auscultation; Negative Wheezes or Crackles
Cardiac: Regular Rhythm and S1/S2
GI: Soft
Neuro: AO x 3
Data Reviewed
-
CT Scan: Report Reviewed by me (chest CT)
Labs: Labs Reviewed by me
--- NOTE | 2023-08-09 10:36 | CM ---
Chart reviewed. Patient is independent of ADLS, lives with her in a 2 STH, 2 ABUNDIO, 0 DME. Patient currently with no discharge needs. Plan is for the patient to return home.
[2023-08-09 11:10] VITALS: BP 137/49
--- NOTE | 2023-08-09 11:40 | W.PN.CARDCBS ---
Addendum entered and electronically signed by Quincy Marte MD 08/09/23 13:12:
I saw and examined the patient.
The Ginger Farmer's note was reviewed and I agree with the note.
Comment:
GEN: No distress, awake, Ox3
HEENT: supple, anicteric, mmm
LUNGS: CTA, no wheezes/rales
CV: Reg, S1/S2, 1/6 syst LSB, no gallop
ABD: soft, BS+, NT/ND
EXT: No edema
NEURO: Gross non-focal
SKIN: No rash
Plan:
Cath results were reviewed. No clear focal coronary artery disease. Echo with preserved ejection fraction and CT negative for PE.
Will treat conservatively at this time. ? Possible coronary spasm. Continue aspirin, Plavix, Lipitor, Toprol lisinopril and Cardizem.
Will add nitroglycerin as needed.
Will check Bardy as outpatient and look for any arrhythmias.
Okay for discharge from cardiac standpoint
Original Note:
Today's Communication / Plan
-
Cath with nonobstructive CAD. Echo with preserved EF. Chest CT negative for PE
Continue aspirin, Plavix, high intensity dose Lipitor, Toprol, lisinopril, Cardizem CD
rx for SL nitro PRN
5 day Bardy monitor to be arranged as OP
ok for DC today
OP cardiac follow up and cardiac rehab arranged
Impression / Plan
-
Manager Business: Dr. Marte
Assessment:
Presentation with CP, SOB
NSTEMI, peak trop 0.8, cath with nonobstructive CAD
LBBB
HTN
Brief atach
Pulm nodule by chest CT
ECHO 08/08/2023: EF 55 to 60%, mild TR, PAP 25 to 30 mmHg
Cath 08/08/23: nonobstructive CAD
Plan:
-Presented with episode of chest discomfort which woke her from sleep. Troponin peaked at 0.08.
-Cardiac catheterization with nonobstructive coronary disease
-Chest CT negative for PE
-Echo with preserved EF, results as above
-Etiology of chest discomfort remains unclear. ? spasm
-Continue aspirin, Plavix, high intensity dose Lipitor, Toprol, lisinopril, Cardizem CD
-LDL 108
-SL nitro rx upon DC. educated on use
-with brief episode of atach on review of tele overnight. patient asymptomatic. will arrange for 5 day Bardy monitor
-cardiac rehab
-ok for DC to home today
-OP cardiac follow up arranged
-Advised to follow-up with PCP regarding pulmonary nodule noted on chest CT
-Discussed with patient and at bedside
Progress Note - Manager Business
Subjective
Date of Service: August 09, 2023
No issues overnight. Eager for discharge
Objective
Labs:
08/09/23 03:11
08/09/23 03:11
Labs
Hgb 13.2 g/dL (12.0-16.0) 08/09/23 03:11
Hct 37.2 % (37.0-47.0) 08/09/23 03:11
Plt Count 270 10^3/uL (130-400) 08/09/23 03:11
APTT 100.5 Sec (23.4-35.0) H 08/08/23 07:36
Sodium 139 mmol/L (135-145) 08/09/23 03:11
Potassium 4.0 mmol/L (3.5-5.1) 08/09/23 03:11
BUN 20 mg/dl (7-17) H 08/09/23 03:11
Creatinine 0.6 mg/dL (0.6-1.0) 08/09/23 03:11
Glucose 100 mg/dl (70-99) H 08/09/23 03:11
Troponins
08/06/23 08/06/23 08/06/23
12:02 16:58 19:20
Troponin I 0.084 H* 0.571 H* D Cancelled
08/06/23 08/06/23 08/07/23
20:04 22:20 03:58
Troponin I 0.878 H* D Cancelled 0.693 H*
08/07/23
11:00
Troponin I Cancelled
Vital Signs and I&O:
Vital Signs
Temp Pulse Resp BP Pulse Ox
98.1 F 64 18 137/49 97
08/09/23 11:10 08/09/23 11:09 08/09/23 11:10 08/09/23 11:10 08/09/23 11:10
Vital Signs
Temp Pulse Resp BP Pulse Ox
98.1 F 64 18 137/49 97
08/09/23 11:10 08/09/23 11:09 08/09/23 11:10 08/09/23 11:10 08/09/23 11:10
Intake & Output
08/07/23 08/08/23 08/09/23 08/10/23
07:59 07:59 07:59 07:59
Intake Total 540 / 540 960 / 960
Balance 540 / 540 960 / 960
Physical Exam
Physical Exam
GEN: No distress, awake, alert, oriented x3
HEENT: supple, anicteric, mmm, EOMI
LUNGS: CTA bilaterally, no wheezes/rales
CV: Reg, S1/S2, no murmur
ABD: soft, BS+, NT/ND
EXT: No cyanosis, clubbing, edema
NEURO: Gross non-focal
SKIN: Warm, pink, dry. No rash. R wrist site c/d/i
--- NOTE | 2023-08-09 12:48 | W.DS.TRANS ---
DC Summary - Cafeteria Cashier
-
Discharge Instructions:
Discharge Diagnosis/Procedures Chest pain -NSTEMI
S/P Cardiac catheterization with non obstructive
CAD
HTN
Diet 2 Gram Sodium,Low Cholesterol
Activity As tolerated
Driving Restrictions No driving for 24 hours
Bathing Restrictions None
Other Services Cardiac Rehab
Instructions:
Stand-Alone Forms: DC Instructions- Cath/EP Lab
Changes to Home Medications: Yes
Discharge Medications:
DC Medications w/original date entered in [employer]
aspirin 81 mg tablet,delayed release 81 mg PO ONCE Blood Clot Prevention/Tx 08/06/23
azelastine 137 mcg (0.1 %) nasal spray aerosol 2 spray intranasal HS Allergies 08/06/23
glucosamine sulf dipot chlr,msm,chond 550 mg-C 30 mg-jossie 1 mg capsule (Glucosamine Chondroitin) 1 cap PO DAILY Supplement 08/06/23
lisinopril 10 mg tablet 10 mg PO DAILY Blood Pressure 08/06/23
therapeutic multivitamin 1 tab PO DAILY Supplement 08/06/23
turmeric 400 mg capsule 400 mg PO DAILY Supplement 08/06/23
atorvastatin 80 mg tablet 80 mg PO QPM #30 tabs 08/09/23
clopidogrel 75 mg tablet 75 mg PO DAILY #30 tabs 08/09/23
diltiazem HCl 120 mg capsule,extended release 24 hr 120 mg PO DAILY #30 caps 08/09/23
metoprolol succinate 25 mg tablet,extended release 24 hr 25 mg PO DAILY #30 tabs 08/09/23
nitroglycerin 0.4 mg sublingual tablet 0.4 mg sublingual [id number] PRN chest pain #30 tabs 08/09/23
Home Medication Changes
New medication-nitroglycerin tablets as needed, metoprolol succinate, diltiazem, Plavix, Lipitor
Discontinue medication-ibuprofen and estrogen replacement therapy
Pending Results: No
--- NOTE | 2023-08-09 12:50 | W.DCSUMMARY ---
Discharge Summary
Discharge Data
Date of Admission: 08/06/23
Date of Discharge: 08/09/23
-
Pending Results: No
Hospital Course
Primary diagnosis:
Non-ST elevation Myocardial infarction
Left bundle branch block
Nonobstructive coronary artery disease
Pulmonary nodule 3mm
Secondary diagnosis:
Hypertension
Hospital course:
68-year-old female presents with chest pain and noted to have elevated troponins with peak of 0.8. She had a left bundle branch block on admission; no prior EKGs to compare. The clinical concern was non-ST ration PR. She went under cardiac
catheterization which showed non obstructive CAD. EF was normal on echo. CT chest showed mild calcific coronary arteries. LDL 108. Cardiology recommended dual antiplatelet agents for 6 to 12 months. Also added statins. Beta-noam was
introduced. To optimize blood pressure calcium channel noam was added to lisinopril. Blood pressure under goal.
Chest CT was obtained because of troponin elevation and nonobstructive CAD and make sure there is no PE. It was negative for PE but showed 3 mm solid pulmonary nodule in the left lower lobe. If the patient is considered high risk, a follow-up
chest CT examination in 12 months is recommended.
There was mild lower lobe bronchial wall thickening but no clinical evidence of bronchitis.
She was taking estrogen replacement therapy with the vaginal topical estrogens , in view of cardiac events advised to hold it and discuss with her [facility].
Consultants on board:
Cardiology-Dr. Villafana
Discharge Plan
-
Patient Disposition: Home (Routine Discharge)
Discharge Diagnosis/Procedures: Chest pain -NSTEMI
S/P Cardiac catheterization with non obstructive CAD
HTN
Diet: Low Cholesterol and 2 Gram Sodium
Activity: As tolerated
Driving Restrictions: No driving for 24 hours
Bathing Restrictions: None
Other Services: Cardiac Rehab
Activity Restrictions/Additional Instructions:
Please call [facility] at [phone] to schedule first appointment upon discharge.
Stop taking ibuprofen but the combination of aspirin and Plavix. Also stop estrogen hormone replacement therapy with heart disease. Follow-up with the [facility] for alternative treatments.
Stand Alone Forms: DC Instructions- Cath/EP Lab
Referrals:
Ellen Figueroa CRNP [Family Provider] - in less than 1 week
Quincy Marte MD [Active] - 08/31/23 11:20 am (You have a cardiology follow-up appointment at the [place] office. Please call with questions)
Prescriptions:
New
atorvastatin 80 mg Tablet
80 mg PO QPM Qty: 30 0RF
clopidogrel 75 mg Tablet
75 mg PO DAILY Qty: 30 0RF
nitroglycerin 0.4 mg Tablet, Sublingual
0.4 mg sublingual [id number] PRN (Reason: chest pain) Qty: 30 0RF
diltiazem HCl 120 mg Capsule,Extended Release 24hr
120 mg PO DAILY Qty: 30 0RF
metoprolol succinate 25 mg Tablet Extended Release 24 Hr
25 mg PO DAILY Qty: 30 0RF
Continued
lisinopril 10 mg Tablet
10 mg PO DAILY
therapeutic multivitamin Tablet
1 tab PO DAILY
aspirin 81 mg Tablet,Delayed Release (Dr/Ec)
81 mg PO ONCE
azelastine 137 mcg (0.1 %) Aerosol,[place]
2 spray INTRANASAL HS
turmeric 400 mg Capsule
400 mg PO DAILY
Glucosamine Chondroitin 550-30-1 mg Capsule
1 cap PO DAILY
Discontinued
ibuprofen 200 mg Tablet
200 mg PO DAILY
ibuprofen 200 mg Tablet
400 mg PO HS
estradiol [Yuvafem] 10 mcg Tablet
10 mcg VAGINAL MOWEFRSA@2200
Discharge Orders:
Discharge Patient (As Directed); Ordered 08/09/23
Ordered By: Genaro Miller
Care Plan Goals
Care Plan Goals:
Problem: Readiness for enhanced knowledge related to diagnosis and treatment plan
Goal: Understand your diagnosis and treatment plan needs, including medications if applicable.
Instructions: Know your diagnosis, underlying causes and treatment plan options, including medications if applicable. Consult with your health care team to learn about your diagnosis and treatment plan, including medications if applicable.
--- NOTE | 2023-08-09 13:05 | CM ---
Chart reviewed. Confirmed with the patient she does have dofetilide 250 mcq at home. 2.5 months and also her pharmacy has it in stock.
--- NOTE | 2023-08-09 14:07 | PTCARENOTE ---
Pt D/C'd to home w/spouse providing transportation. Pt left w/personal belongings incl cell phone, bookkeeping clerks supervisor, and clothing. Pt's IV line & telemetry pack removed. Pt taken outside via WC by staff.
== END 2023-08-09 14:02 | disposition home or self-care (01) | DRG 282 ==
LOC: IVU 13:47
PROVIDERS: Internal Medicine; Nurse Practitioner; Physician Assistant; ADMITTING PHYSICIAN Internal Medicine; ATTENDING PHYSICIAN Internal Medicine; CONSULT PHYSICIAN Internal Medicine Cardiovascular Disease; EMERGENCY PHYSICIAN Emergency Medicine; FAMILY PHYSICIAN Nurse Practitioner
PROC: B2111ZZ Fluoroscopy of Multiple Coronary Arteries using Low Osmolar Contrast (ICD-10-PCS; 2023-08-08)
PROC: 4A023N7 Measurement of Cardiac Sampling and Pressure, Left Heart, Percutaneous Approach (ICD-10-PCS; 2023-08-08)
PROC: B2151ZZ Fluoroscopy of Left Heart using Low Osmolar Contrast (ICD-10-PCS; 2023-08-08)
DX: I21.4 Non-ST elevation (NSTEMI) myocardial infarction (principal); I44.7 Left bundle-branch block, unspecified; I10 Essential (primary) hypertension; Z79.82 Long term (current) use of aspirin; I25.10 Atherosclerotic heart disease of native coronary artery without angina pectoris; R91.1 Solitary pulmonary nodule
CPT/HCPCS: 71046; 71275; 80048; 80053; 80061; 83036; 83880; 84484; 85025; 85027; 85379; 85730; 93005; 93306; 93458; 96365; 96366; 99285; C1894; Q9967